=== PATIENT | female | born 1935 | race Caucasian/White ===

== ENCOUNTER 2018-06-01 17:14 | Emergency (ER) | payer MEDICARE, OTHER, SELFPAY ==
[2018-06-01 17:26] VITALS: BP 164/76; PULSE 83; RESP 15; TEMP 36.3; O2SAT 99; BMI 23.3
[2018-06-01 18:12] LABS: Hematocrit 36.8 % (36-46); Hemoglobin 12.1 g/dL (12.0-16.0); Mean Corpuscular HGB Conc 32.9 % (30-36); Mean Corpuscular Hemoglobin 29.8 PG (26-34); Mean Corpuscular Volume 90.6 fL (80-100); Platelet Count 285 X10^3/uL (150-400); Red Blood Cell Count 4.06 X10^6/uL (4.0-5.2); Red Cell Distribution Width 13.9 % (11.6-14.8)
[2018-06-01 18:17] LABS: Alanine Aminotransferase 36 IU/L (9-52); Albumin 4.4 g/dL (3.5-5.0); Albumin Globulin Ratio 1.6 (1.0-2.8); Alkaline Phosphatase 87 U/L (38-126); Aspartate Aminotransferase 38 IU/L (14-36); BUN Creatinine Ratio 29.1 (6-22); Bilirubin Total 0.3 mg/dL (0.2-1.3); Blood Urea Nitrogen 32 mg/dL (7-17); Calcium 8.8 mg/dL (8.4-10.2); Carbon Dioxide 20 mmol/L (22-32); Chloride 108 mmol/L (98-107); Creatine Kinase 282 U/L (30-135); Estimated Glomerular Filt Rate 47.7 mL/min (>60); Globulin 2.8 g/dL (1.7-4.1); Glucose 99 mg/dL (80-110); HEMOLYSIS 16 (0-50); Potassium 4.4 mmol/L (3.4-5.1); Sodium 141 mmol/L (137-145); Total Protein 7.2 g/dL (6.3-8.2)
--- NOTE | 2018-06-01 18:17 | ED_ITS ---
HPI - Syncope General Chief Complaint: Syncope Stated Complaint: FEELS LIKE SHE IS GOING TO PASS OUT Time Seen by Provider: 06/01/18 17:43 Source: patient Mode of arrival: ambulatory Limitations: no limitations History of Present Illness HPI narrative: Otherwise healthy 82-year-old female visiting family here in the area states that today she was sitting at lunch when she had a sudden onset of feeling lightheaded. She states that she felt like she was going to pass out but did not pass out. Stated that the symptoms lasted only seconds. No other associated symptoms to include chest pain shortness of breath or headache or vision changes. States she never felt anything like this before. The symptoms completely resolved and she was able to go about her day. She states that since then she has had other episodes throughout the day. To include just prior to arrival here in the emergency department. Related Data Home Medications Medication Instructions Recorded Confirmed Calcium 1 tab PO DAILY 06/01/18 06/01/18 Fish Oil 1 cap PO DAILY 06/01/18 06/01/18 Glucosamine Sulf-Chondroitin 1 tab PO DAILY 06/01/18 06/01/18 Vitamin B 1 tab PO DAILY 06/01/18 06/01/18 Vitamin C 1 tab PO DAILY 06/01/18 06/01/18 flaxseed oil 1 cap PO DAILY 06/01/18 06/01/18 iron 1 tab PO DAILY 06/01/18 06/01/18 multivitamin 1 tab PO DAILY 06/01/18 06/01/18 hofyisjhvljk-pbzz-clyzr acid 1 tab PO DAILY 06/01/18 06/01/18 [Multi-Day with Iron] Allergies Allergy/AdvReac Type Severity Reaction Status Date / Time codeine Allergy Verified 06/01/18 17:26 morphine Allergy Verified 06/01/18 17:26 Review of Systems Constitutional Denies fatigue, Denies fever(s), Denies headache(s), Denies lethargy, Denies malaise and Denies weakness Eyes Denies change in vision and Denies diplopia ENT Ears, Nose, Mouth, and Throat: Denies dysphagia, Denies vertigo, Reports dizziness, Denies headache(s) and Reports disequilibrium Cardiovascular Denies chest pain, Denies syncope, Denies edema and Denies dyspnea Respiratory Denies cough, Denies pain with cough and Denies dyspnea Gastrointestinal Gastrointestinal: Denies abdominal pain, Denies dysphagia, Denies diarrhea, Denies nausea and Denies vomiting Genitourinary Denies dysuria Musculoskeletal Denies myalgias, Denies arthralgias and Denies tingling Integumentary/Breasts Denies lesions and Denies rash Neurologic Denies behavioral changes, Denies confusion, Denies vertigo, Reports dizziness, Denies syncope, Denies headache(s), Denies focal weakness, Denies memory loss, Denies convulsions, Denies tingling, Denies paresthesias, Denies tremor(s), Reports disequilibrium and Denies weakness Psychiatric Denies behavioral changes, Denies confusion and Denies memory loss Endocrine Denies fatigue Hematologic/Lymphatic Denies easy bleeding and Denies easy bruising PFSH Medical History Healthy adult (Acute) Surgical History No pertinent past surgical history (Acute) Social History Smoking Status: Never smoker Exam Initial Vital Signs Initial Vital Signs: Vital Signs Temperature 97.4 F L 06/01/18 17:26 Pulse Rate 83 06/01/18 17:26 Respiratory Rate 15 06/01/18 17:26 Blood Pressure 164/76 H 06/01/18 17:26 Pulse Oximetry 99 06/01/18 17:26 Const General: cooperative, healthy appearing, comfortable, well developed, well groomed and No acute distress Orientation: alert, awake and oriented x3 HENMT Head: normal to inspection and normocephalic Resp Effort & Inspection: normal respiratory effort Auscultation: clear to auscultation bilaterally Cardio Rate: regular rate Rhythm: regular rhythm Pulses: radial pulses present GI Inspection: non-distended Palpation: soft Skin Lesions: no lesions Rashes: no rashes Neuro General: alert, awake and oriented x3 Cranial Nerves: CN's II-XI intact bilaterally Cognition: normal cognition Motor: muscle tone normal throughout Sensory Exam: no sensory deficits noted Extrem General: normal to inspection and capillary refill normal Psych Appearance: grossly normal Mood: congruent mood Affect: normal affect Course Orders Ordered: ED Orders 06/01/18 17:43 EKG-12 Lead Stat 06/01/18 17:45 Complete Blood Count AUTO DIFF Stat Comprehensive Metabolic Panel Stat Troponin & CK Cardiac Panel Stat 06/01/18 18:29 CT head/brain w con Stat 06/01/18 19:11 Complete Blood Count MAN DIFF Stat Pathologist Review (for CBC) Stat Vital Signs - 8 hr 06/01/18 17:26 06/01/18 19:42 Temperature 97.4 F L Pulse Rate 83 82 Respiratory Rate 15 11 L Blood Pressure 164/76 H Blood Pressure [Left Arm] 157/75 H Pulse Oximetry 99 98 MDM - Syncope Lab Data Attestation: I reviewed the patient's lab results. Result diagrams: 06/01/18 19:11 06/01/18 17:45 Lab Results 06/01/18 06/01/18 06/01/18 Range/Units 17:45 17:45 19:11 WBC 32.3 H* 30.3 H* (4.5-11.0) X10^3/uL RBC 4.06 3.99 L (4.0-5.2) X10^6/uL Hgb 12.1 11.9 L (12.0-16.0) g/dL Hct 36.8 36.2 (36-46) % MCV 90.6 90.7 (80-100) fL MCH 29.8 29.7 (26-34) PG MCHC 32.9 32.8 (30-36) % RDW 13.9 13.7 (11.6-14.8) % Plt Count 285 263 (150-400) X10^3/uL Neut % (Auto) Not Reportable Lymph % (Auto) Not Reportable [place] % (Auto) Not Reportable Eos % (Auto) Not Reportable Baso % (Auto) Not Reportable Total Counted 100 100 Seg Neutrophils % 18.0 L 14.0 L (38-70) % Band Neutrophils % 1.0 L (3-7) % Lymphocytes % (Manual) 17.0 L 14.0 L (25-45) % Atypical Lymphs % 62.0 H 67.0 H ( - 0) % Monocytes % (Manual) 3.0 2.0 (2-11) % Eosinophils % (Manual) 2.0 (2-4) % Neutrophils # (Manual) 5814 4545 (7434-1630) /uL [place] Cells 2+ H 2+ H WBC Morphology Comment Note: RBC Morphology Normal morphology Rbc morph normal Sodium 141 (137-145) mmol/L Potassium 4.4 (3.4-5.1) mmol/L Chloride 108 H (98-107) mmol/L Carbon Dioxide 20 L (22-32) mmol/L BUN 32 H (7-17) mg/dL Creatinine 1.10 H (0.52-1.04) mg/dL Estimated GFR 47.7 L (>60) mL/min BUN/Creatinine Ratio 29.1 H (6-22) Glucose 99 (80-110) mg/dL Calcium 8.8 (8.4-10.2) mg/dL Total Bilirubin 0.3 (0.2-1.3) mg/dL AST 38 H (14-36) IU/L ALT 36 (9-52) IU/L Alkaline Phosphatase 87 (38-126) U/L Total Creatine Kinase 282 H (30-135) U/L CK-MB (CK-2) 5.96 H (<2.37) ng/mL CK-MB (CK-2) Rel Index 2.1 (1.5-5.0) % Troponin I < 0.012 (0.01-0.034) ng/mL Total Protein 7.2 (6.3-8.2) g/dL Albumin 4.4 (3.5-5.0) g/dL Globulin 2.8 (1.7-4.1) g/dL Albumin/Globulin Ratio 1.6 (1.0-2.8) Point of Care Testing Glucose POC [address] scan - head: Radiologist's impression: [place] [address] CT Scan Report Signed Patient: CHRIS ARZOLA JMR#: [id number] : 6Acct:[id number] Age/Sex: 82 / FDate of Service: 06/01/18 Loc: ED Accession Number: [id number] Procedure: CT head/brain w con Ordering Provider: Tino Vu D.O. PROCEDURE: CT HEAD/BRAIN W CON INDICATIONS: Syncope TECHNIQUE: 4.5 mm thick angled axial sections acquired from the foramen magnum to the vertex after the administration of intravenous contrast, with coronal and sagittal reformats. For radiation dose reduction, the following was used: automated exposure control, adjustment of mA and/or kV according to patient size. COMPARISON: None. FINDINGS: Image quality: Excellent. CSF Spaces: Basal cisterns are patent. No extra-axial fluid collections. Ventricles are normal in size and shape. Brain: Mild periventricular white matter chronic ischemic Tino and hepatic changes are seen. Mild age-appropriate cerebral and cerebellar cortical atrophy is also noted. No midline shift. No intracranial bleeds or masses. No abnormal intracranial enhancement. Bell-white interface appears normal. Skull and face: Calvarium and visualized facial bones appear intact, without suspicious lesions. Sinuses: Visualized sinuses and mastoids are clear. IMPRESSION: No CT evidence of acute intracranial pathology. Age-appropriate atrophy and mild periventricular white matter microangiopathic changes. Dictated by: Velasquez Dixon M.D. on 06/01/2018 at 18:59 Approved by: Velasquez Dixon M.D. on 06/01/2018 at 18:59 ECG Data Attestation: I personally reviewed and interpreted this ECG as follows: Prior ECG tracings: not available for review Interpretation: Sinus rhythm Ventricular rate 80 Normal axis LVH Nonspecific ST T wave changes MDM Narrative Medical decision making narrative: Patient had an episode of her lightheadedness while she was on the monitor here in the emergency department. She became bradycardic with a rate in the 40s. It was sinus. Patient resolved on her own. Had no other symptoms except for lightheadedness. Patient also has a elevated white blood cell count. Unsure the exact etiology of this. Patient states that her mother had leukemia. Given her symptomatic bradycardia and also this new finding of leukocytosis I feel that admission to the hospital is warranted. I discussed the case with Dr. Duncan at [facility] who accepts the patient in transfer. I discussed the transfer with the patient and her daughter was at bedside. They expressed understanding and agreement. Discharge Plan Departure Patient Disposition: [facility] Clinical Impression: Symptomatic bradycardia, Leukocytosis Prescriptions: No Action multivitamin Tablet 1 tab PO DAILY RF: 0 fzbpwzuminhr-jzoz-ickol acid [Multi-Day with Iron] 18-400 mg-mcg Tablet 1 tab PO DAILY RF: 0 Calcium 1 tab PO DAILY RF: 0 Fish Oil 1 cap PO DAILY RF: 0 Glucosamine Sulf-Chondroitin 1 tab PO DAILY RF: 0 Vitamin B 1 tab PO DAILY RF: 0 Vitamin C 1 tab PO DAILY RF: 0 flaxseed oil 1 cap PO DAILY RF: 0 iron 1 tab PO DAILY RF: 0
[2018-06-01 18:21] LABS: Add Manual Diff / Slide Review YES; White Blood Cell Count 32.3 X10^3/uL (4.5-11.0)
--- NOTE | 2018-06-01 18:29 | DI.CT.S_ITS ---
PROCEDURE: CT HEAD/BRAIN W CON INDICATIONS: Syncope TECHNIQUE: 4.5 mm thick angled axial sections acquired from the foramen magnum to the vertex after the administration of intravenous contrast, with coronal and sagittal reformats. For radiation dose reduction, the following was used: automated exposure control, adjustment of mA and/or kV according to patient size. COMPARISON: None. FINDINGS: Image quality: Excellent. CSF Spaces: Basal cisterns are patent. No extra-axial fluid collections. Ventricles are normal in size and shape. Brain: Mild periventricular white matter chronic ischemic Tino and hepatic changes are seen. Mild age-appropriate cerebral and cerebellar cortical atrophy is also noted. No midline shift. No intracranial bleeds or masses. No abnormal intracranial enhancement. Bell-white interface appears normal. Skull and face: Calvarium and visualized facial bones appear intact, without suspicious lesions. Sinuses: Visualized sinuses and mastoids are clear. IMPRESSION: No CT evidence of acute intracranial pathology. Age-appropriate atrophy and mild periventricular white matter microangiopathic changes. Dictated by: Velasquez Dixon M.D. on 06/01/2018 at 18:59 Approved by: Velasquez Dixon M.D. on 06/01/2018 at 18:59
[2018-06-01 18:30] LABS: Neutrophils Absolute Manual 5814 /uL (3000-5900); Total Cells Counted 100
[2018-06-01 18:31] LABS: RBC Morphology Normal Morphology; Smudge Cells 2+
[2018-06-01 18:32] LABS: Troponin I < 0.012 ng/mL (0.01-0.034)
[2018-06-01 18:33] LABS: CKMB % Relative Index 2.1 % (1.5-5.0); Creatine Kinase MB 5.96 ng/mL (<2.37)
--- NOTE | 2018-06-01 18:38 | PC.NURSE ---
1750 Just prior to my inserting the pt. IV pt. called out oh, its happening again got pale, diaphoretic and felt like she was going to faint. Called staff to assist getting her on the monitor.
[2018-06-01 19:18] LABS: Hematocrit 36.2 % (36-46); Hemoglobin 11.9 g/dL (12.0-16.0); Mean Corpuscular HGB Conc 32.8 % (30-36); Mean Corpuscular Hemoglobin 29.7 PG (26-34); Mean Corpuscular Volume 90.7 fL (80-100); Platelet Count 263 X10^3/uL (150-400); Red Blood Cell Count 3.99 X10^6/uL (4.0-5.2); Red Cell Distribution Width 13.7 % (11.6-14.8)
[2018-06-01 19:19] LABS: White Blood Cell Count 30.3 X10^3/uL (4.5-11.0)
[2018-06-01 19:37] LABS: Neutrophils Absolute Manual 4545 /uL (3000-5900); Smudge Cells 2+; Total Cells Counted 100
[2018-06-01 19:40] LABS: RBC Morphology RBC MORPH NORMAL
[2018-06-01 19:42] VITALS: BP 157/75; PULSE 82; RESP 11; O2SAT 98
[2018-06-01 19:43] LABS: WBC Morphology Comment NOTE:
[2018-06-01 20:42] LABS: Bacteria Urine None Seen; RBC Urine None Seen (0-5/HPF)
[2018-06-01 20:51] LABS: Culture Indicated Urine Cult Not Indicated; Squamous Epithelial Cell Urine 0-1 /HPF; WBC Urine 0-1/HPF (0-5/HPF)
[2018-06-01 20:59] VITALS: BP 140/65; PULSE 81; RESP 20; O2SAT 100
--- NOTE | 2018-06-01 21:14 | PC.NURSE ---
Pt had another episode of decrease LOC, HR went from 70's-80's to 50's. BP stable. Pt now AOx4.
[2018-06-01 23:04] VITALS: PULSE 72; RESP 20; O2SAT 97
[2018-06-02 00:34] VITALS: BP 121/58; PULSE 78; RESP 16; TEMP 36.8; O2SAT 98
== END 2018-06-02 00:43 | disposition short-term general hospital (02) ==
PROVIDERS: Emergency Medicine; Emergency Provider Emergency Medicine
DX: R00.1 Bradycardia, unspecified (principal); D72.829 Elevated white blood cell count, unspecified
CPT/HCPCS: 36415; 36591; 70460; 80053; 81003; 81015; 82550; 82553; 82962; 84484; 85025; 93005; 93041; 99285

== ENCOUNTER → 2018-11-13 11:54 | Outpatient (REF) | payer MEDICARE, OTHER, SELFPAY | LOC: LAB 11:54 ==